=== PATIENT | male | born 1970 | race Caucasian/White ===

== ENCOUNTER → 2018-10-21 09:35 | Outpatient (CLI) | payer BC, SELFPAY ==
[2017-01-10 09:57] VITALS: BMI 30.9
--- NOTE | 2018-10-21 09:46 | RAD_ITS ---
STUDY: X-RAY - LUMBAR SPINE REASON FOR EXAM: Male, 48 years old. Low back pain x3 years TECHNIQUE: 5 view(s) of the lumbar spine were obtained. COMPARISON: None FINDINGS: Normal lumbar lordosis. There is no substantial scoliosis. There is a normal alignment of the vertebrae. There is minimal endplate spondylosis of L4 and L5. Normal disc space heights. The soft tissue structures are unremarkable. RAD/L/S Spine Min 4 Views IMPRESSION: Minimal endplate spondylosis of L4 and L5. The study is otherwise unremarkable. Electronically Signed: Waylon Reyes MD at 22:11 EST , Service support ,
--- OUTSIDE RECORDS SUMMARY | 2018-12-14 13:58 | XMS RPT_ITS ---
:1970 Author Organization [facility] Care Team Providers Name Role Phone Jonathan Lyons Attending Unavailable Eloy, Jonathan Referring Unavailable Eloy, Jonathan Primary Care Unavailable Jonathan Lyons Attending Unavailable Eloy, Jonathan Referring Unavailable Eloy, Jonathan Primary Care Unavailable PROBLEMS PROBLEMS DATE TYPE CONDITION / CODE ATTENDING STATUS SOURCE 10/21/2018 Unknown M54.9 - Jonathan Lyons Active [place] [facility], Community unspecified / Hospital M54.9(ICD-10) Repository PROCEDURES PROCEDURES No Procedure Records FoundRESULTS RESULTS INITAL EVALUATION (1) Observed: 10/29/2018 Status: F Source: [place] - PT 5:02 PM [facility] REPOSITORY [facility] Physical [facility] [address] [place] [address] Fax REHABILITATION SERVICES INITIAL EVALUATION MR#: [id number] Acct: [id number] Name: KYM PARKER Rep #: [id number] : 1970 48 From: Isaiah Welsh PT, Cert. MDT, OCS Referring Dr.: Jonathan Lyons MD Status: REG RCR Insurance: [employer] SELF PAY INSURANCE Patient's Visit Information KYM PARKER is a 48 year old M referred to Physical Therapy by Jonathan Lyons with a diagnosis of BACK PAIN. Date of Evaluation: 10/23/18 Physical Therapist: Isaiah Welsh PT, - Visit Plan Frequency: 2x /Week Duration: 4 Weeks Plan: PATIENT HAS H/O CERVICAL FUSION 6 YEARS AGO. MEÑO EX'S,DLS,POSTURE EX'S ,MODALITIES ,LE FLEXABLITY - Subjective Findings: This 48 y/o male presents to physical therapy for low back pain. This patient has lumbar pain for several years worsen past 6 months. Patient has symmtrical mainly in the center. Patient has symptoms with parathesia/tingling in legs for 10-15mins with walking. Coughing/sneezing can increase symptoms.Bowel/bladder good. Pain can affect sleeping rolling in bed.Patient had no prior treatment. Patient had cervical surgery fusion due to HNP 6 YEARS. Patient symptoms affect QOL and function/job demands. SOCIAL: . VOCATION: [employer] - Pain Bilateral Back Pain Intensity (Out of 10): 2 Pain Intensity Range: 10 - Objective POSTURE: mild foward posture. GAIT: reciprocal pattern normal veronica. PALAPTION: unremarkable. NEURO: reflexes 3/3 hyperreflexia ,C5-6-7,L3-4,L4-5,L5-S1. SYMMTRIES: alighn. MMT: 4/5 grossly BUE,quads/hams/hip /ankle 4/5. LUMBAR ROM: flexion min loss,extension min/mod loss,side glides min loss. FLEXABLITY: hams mod tight - Special Tests L/S Slump test left side: Negative L/S Slump test right side: Negative L/S Left Straight Leg Raise: Negative L/S Right Straight Leg Raise: Negative Lumbar Standing: Flexion - Mechanical Response: No effect Lumbar Standing: Flexion - Symptoms During Testing: Increases Lumbar Standing: Flexion - Symptoms After Testing: No worse Lumbar Standing: Extension - Mechanical Response: No effect Lumbar Standing: Extension - Symptoms During Testing: Increases Lumbar Standing: Extension - Symptoms After Testing: No worse Lumbar Lying: Flexion - Mechanical Response: No effect Lumbar Lying: Flexion - Symptoms During Testing: No effect Lumbar Lying: Flexion - Symptoms After Testing: No effect Lumbar Lying: Extension - Mechanical Response: No effect Lumbar Lying: Extension - Symptoms During Testing: Increases Lumbar Lying: Extension - Symptoms After Testing: Better - Goals Goal 1:: Independant with HEP Goal Time Frame: 4-6 Weeks Goal 2:: Independant with posture for ADL'S Goal Time Frame: 4-6 Weeks Goal 3:: Decrease symptoms in legs with walking by 60% Goal Time Frame: 4-6 Weeks Goal 4:: Patient improve lumbar ROM for function of recovery Goal Time Frame: 4-6 Weeks Goal 5:: Patient to improve LUCY back score by 5 points to umprove QOL Goal Time Frame: 4-6 Weeks - Rehabilitation Potential Physical Therapy Diagnosis: This patient seen for PT for lumbar pain with possible derrangement symptoms worse with walking. Patient does have h/o of cervical fusion caused weakness in legs 6 years ago. Rehabilitation Potential: Good - Anticipated Interventions Patient/Client Instruction: Educate patient on: Condition, Plan of Care For the Purpose of:: To decrease pain, To increase ROM, To improve muscle performance and motor function, To increase tolerance to activity/condition/position, To improve ability of physical actions for home/community/work/leisure, To improve health of tissue, To decrease soft tissue restriction, To increase flexibility/ROM, To improve ability to perform tasks related to life management Therapeutic Exercise to Include: Strength training, Body mechanics, Postural training, Flexibilty training, Dynamic Lumbar Stabilization, Meño Exercises For the Purpose of:: To decrease pain, To increase ROM, To improve muscle performance and motor function, To increase tolerance to activity/condition/position, To decrease level of supervision to perform tasks, To improve health of tissue, To decrease soft tissue restriction, To increase flexibility/ROM, To improve ability to perform tasks related to life management TENS: Yes IF ES: Yes Cryotherapy (ice pack, ice massage): Yes Thermo therapy (hot pack): Yes Ultrasound (thermal/non thermal): Yes For the Purpose of:: To decrease pain, To increase ROM, To improve nutrient delivery to tissue, To increase oxygenation perfusion, To improve health of tissue, To decrease soft tissue restriction, To increase flexibility/ROM Thank you for the opportunity to evaluate your patient. For Medicare and Medicare HMO plans, please review the plan of care and approve it. It will need to be FAXED BACK to us at [phone] for Medicare purposes. For Medicare only, by signing this I certify the plan of care. Please let me know if there are questions or concerns regarding this plan of care. Physician Signature: Date: <Electronically signed by Isaiah Welsh PT, Cert. MDT, OCS> 10/29/18 1702 CC: Jonathan Lyons MD JLA Signed L/S SPINE MIN 4 Observed: 10/21/2018 Status: F Source: [place] VIEWS 9:46 AM [facility] REPOSITORY [facility] Imaging Services [address] [place] [address] L/S Spine Min 4 Views MR#: [id number] Acct: [id number] Name: KYM PARKER Rep #: [id number] : 1970 M 48 From: Waylon Reyes MD PCP: Jonathan Lyons MD Status: REG CLI Study: L/S Spine Min 4 Views Date of Exam: 10/21/18 Exam# [id number] Ordering Dr: Jonathan Lyons MD STUDY: X-RAY - LUMBAR SPINE REASON FOR EXAM: Male, 48 years old. Low back pain x3 years TECHNIQUE: 5 view(s) of the lumbar spine were obtained. COMPARISON: None FINDINGS: Normal lumbar lordosis. There is no substantial scoliosis. There is a normal alignment of the vertebrae. There is minimal endplate spondylosis of L4 and L5. Normal disc space heights. The soft tissue structures are unremarkable. RAD/L/S Spine Min 4 Views IMPRESSION: Minimal endplate spondylosis of L4 and L5. The study is otherwise unremarkable. Electronically Signed: Waylon Reyes MD at 22:11 EST , Service support , CC: Jonathan Lyons MD Hospital Personnel Director: Signed CNOV Observed: 07/01/2018 Status: COMPLETED Source: [place] 12:30 PM [facility] [place] REPOSITORY Office Visit (WSTR) KYM PARKER ([id number]) 1970 M Date Time Provider Department 07/01/18 12:30 PM ARIELLA MAYORGA ([facility]) [facility] During your visit today, we recorded the following information about you: Temperature Pulse Respiration Blood pressure 98 degrees 88/minute 18/minute 140/90 Weight 101.2 kg Ariella Mayorga APRN.CNP 07/01/2018 1:12 PM Signed Subjective HPI HPI Kym Parker is a 48 year old male who presents today for CC of right knee pain. This started 5 days ago after large amount of work/kneeling. Has tried ibuprofen with mild relief. Symptoms are worsened by walking. Risk factors are right knee injury years ago, not worked up/resolved. .Patient presents with: Knee Pain: Right knee No past medical history on file. No past surgical history on file. ALLERGIES Patient has no known allergies. MEDICATIONS No prescriptions on file. No family history on file. Social History Substance Use Topics - Smoking status: Never Smoker - Smokeless tobacco: Current User Types: Chew - Alcohol use Not on file Review of Systems Constitutional: Negative for chills and fever. Musculoskeletal: Positive for joint pain. Skin: Negative for itching and rash. Objective Blood pressure 140/90, pulse 88, temperature 36.7 ?C (98 ?F), temperature source Left Tympanic, resp. rate 18, weight 101.2 kg (223 lb). Physical Exam Constitutional: He is oriented to person, place, and time and well-developed, well-nourished, and in no distress. Non-toxic appearance. He does not have a sickly appearance. No distress. HENT: Head: Normocephalic and atraumatic. Cardiovascular: Pulses: Dorsalis pedis pulses are 2+ on the right side. Posterior tibial pulses are 2+ on the right side. Pulmonary/Chest: Effort normal. No accessory muscle usage. No respiratory distress. Musculoskeletal: Right knee: He exhibits swelling. He exhibits normal range of motion, no effusion, no ecchymosis, no deformity, no laceration, no erythema, normal alignment and no LCL laxity. Legs: Neurological: He is alert and oriented to person, place, and time. Skin: He is not diaphoretic. ASSESSMENT/PLAN: 1. Acute pain of right knee - ICD9: 719.46, ICD10: M25.561 -suspect bursitis -given stretches/exercises -Rest, Ice, Compression, Elevation discussed -discussed use of ibuprofen -follow up with primary care if symptoms persist/worsen in 10-14 days -will establish with pcp and have f/u to recheck knee/blood pressure - PREDNISONE 10 MG TABLET Prescription instructions reviewed with patient as applicable. Patient advised if symptoms do not improve or if symptoms worsen sooner, to contact the office for further evaluation by their primary care physician. Potential red flag symptoms discussed with the patient. Reviewed appropriate action plan to take if red flag symptoms occur. Patient agreeable to treatment plan. Ariella Mayorga APRN.LEEROY Mayorga APRN.CNP 07/01/2018 12:35 PM Signed ASSESSMENT/PLAN: 1. Acute pain of right knee - ICD9: 719.46, ICD10: M25.561 -given stretches/exercises -Rest, Ice, Compression, Elevation discussed -discussed use of ibuprofen -follow up with primary care if symptoms persist/worsen in 10-14 days - PREDNISONE 10 MG TABLET Referring Provider: SELF [200] Allergies As of Date: 07/01/2018 (No Known Allergies) Date Reviewed: 07/01/2018 Reviewed by: Ariella Mayorga - Fully Assessed Reason for Visit: Knee Pain [132] Cmt: Right knee Primary Visit Diagnosis:Acute pain of right knee [M25.561] Order(s):predniSONE (DELTASONE) 10 mg tabletTake 4 tabs daily for 3 days, then 2 tabs daily for 3 days, then 1 tab daily for 3 days with food.Disp: 21 tabletRfl: 0 Prescriptions as of 07/01/2018 Sig: PREDNISONE 10 MG TABLET Take 4 tabs daily for 3 days,* Problem List As Of Date: 07/01/2018 (None) Other instructions from your clinician: ASSESSMENT/PLAN: 1. Acute pain of right knee - ICD9: 719.46, ICD10: M25.561 -given stretches/exercises -Rest, Ice, Compression, Elevation discussed -discussed use of ibuprofen -follow up with primary care if symptoms persist/worsen in 10-14 days - PREDNISONE 10 MG TABLET Prescriptions ordered this encounter Disp Refills Start End PREDNISONE 10 MG TABLET 21 t* 0 07/01/2018 07/10/2018 Sig: Take 4 tabs daily for 3 days, then 2 tabs daily for 3 days, then 1 tab daily for 3 days with food. Encounter Status:Closed by ARIELLA MAYORGA CNP on 07/01/18 PROGRESS Observed: 07/01/2018 Status: COMPLETED Source: [place] 12:23 PM [facility] REPOSITORY O ID: [id number] Author: Ariella Gutiérrez) Service: (none) Author Type: Nurse Practitioner Type: Progress Notes Filed: 07/01/2018 1:12 PM Note Text: Subjective HPI HPI Kym Parker is a 48 year old male who presents today for CC of right knee pain. This started 5 days ago after large amount of work/kneeling. Has tried ibuprofen with mild relief. Symptoms are worsened by walking. Risk factors are right knee injury years ago, not worked up/resolved. .Patient presents with: Knee Pain: Right knee No past medical history on file. No past surgical history on file. ALLERGIES Patient has no known allergies. MEDICATIONS No prescriptions on file. No family history on file. Social History Substance Use Topics - Smoking status: Never Smoker - Smokeless tobacco: Current User Types: Chew - Alcohol use Not on file Review of Systems Constitutional: Negative for chills and fever. Musculoskeletal: Positive for joint pain. Skin: Negative for itching and rash. Objective Blood pressure 140/90, pulse 88, temperature 36.7 ?C (98 ?F), temperature source Left Tympanic, resp. rate 18, weight 101.2 kg (223 lb). Physical Exam Constitutional: He is oriented to person, place, and time and well-developed, well-nourished, and in no distress. Non-toxic appearance. He does not have a sickly appearance. No distress. HENT: Head: Normocephalic and atraumatic. Cardiovascular: Pulses: Dorsalis pedis pulses are 2+ on the right side. Posterior tibial pulses are 2+ on the right side. Pulmonary/Chest: Effort normal. No accessory muscle usage. No respiratory distress. Musculoskeletal: Right knee: He exhibits swelling. He exhibits normal range of motion, no effusion, no ecchymosis, no deformity, no laceration, no erythema, normal alignment and no LCL laxity. Legs: Neurological: He is alert and oriented to person, place, and time. Skin: He is not diaphoretic. ASSESSMENT/PLAN: 1. Acute pain of right knee - ICD9: 719.46, ICD10: M25.561 -suspect bursitis -given stretches/exercises -Rest, Ice, Compression, Elevation discussed -discussed use of ibuprofen -follow up with primary care if symptoms persist/worsen in 10-14 days -will establish with pcp and have f/u to recheck knee/blood pressure - PREDNISONE 10 MG TABLET Prescription instructions reviewed with patient as applicable. Patient advised if symptoms do not improve or if symptoms worsen sooner, to contact the office for further evaluation by their primary care physician. Potential red flag symptoms discussed with the patient. Reviewed appropriate action plan to take if red flag symptoms occur. Patient agreeable to treatment plan. Ariella Mayorga APRN.NON LICENSED NUCLEAR PLANT OPERATOR ALLERGIES ALLERGIES DATE TYPE / CODE NAME / CODE REACTION SEVERITY SOURCE 01/10/2017 Drug No Known Unknown [facility] Allergy/416 Allergies/K54884 [facility] 412034(SNOM 0388(RXNORM) Repository ED CT) Drug NO KNOWN [facility] Class/43088 ALLERGIES [facility] 1003(SNOMED Repository CT) ENCOUNTERS ENCOUNTERS ADMIT/DISCHARGE ACCOUNT ADMITTING ENCOUNTER LOCATION SOURCE NUMBER CLASS 10/31/2018 [id number] [facility] ing:PT Repository 10/21/2018 [id number] [facility] ing:MTRAD Repository 07/01/2018/07/03/20 [id number] [address]ulatory [address] Repository PAYERS PAYERS ENCOUNTER GUARANTOR PAYER SUBSCRIBER SOURCE 10/31/2018 KYM [id number] Insurance:ANTHEMPolic STARLINGDOB: [facility] dev Kumar Number: [id number] [address]Ied: [id number] Repository Date:0920-27-03[address] () [id number], [place] [address]HP: 10/31/2018 Secondary NOT GIVENUNK [place] Insurance:SELF PAY [facility] Number: Effective Repository Date:2018-10-23 10/21/2018 KYM L Primary KYM [facility] [place] [id number] Insurance:ANTHEMPolic STARLINGDOB: [facility] DUNG KOCHWooradha, y Number: [id number] [address]Ttr: [id number] Repository Date:5066-06-22[address] () [place], [place] [address]CY: 10/21/2018 Secondary NOT GIVENUNK [place] Insurance:SELF PAY [facility] Number: Effective Repository Date:2018-10-21
== END ==
PROVIDERS: Family Provider Family Medicine; PCP Family Medicine; Referring Provider Family Medicine; Visit Provider Family Medicine
DX: M54.9 Dorsalgia, unspecified (principal)
CPT/HCPCS: 72110

== ENCOUNTER 2018-11-21 10:30 | Outpatient (RCR) | payer BC, SELFPAY ==
--- NOTE | 2018-10-23 14:51 | HP.PTEVAL_ITS ---
Patient's Visit Information KYM QUINTANA is a 48 year old M referred to Physical Therapy by Jonathan Lyons with a diagnosis of BACK PAIN. Date of Evaluation: 10/23/18 Physical Therapist: Isaiah Welsh PT, - Visit Plan Frequency: 2x /Week Duration: 4 Weeks Plan: PATIENT HAS H/O CERVICAL FUSION 6 YEARS AGO. MEÑO EX'S,DLS,POSTURE EX'S ,MODALITIES ,LE FLEXABLITY - Subjective Findings: This 48 y/o male presents to physical therapy for low back pain. This patient has lumbar pain for several years worsen past 6 months. Patient has symmtrical mainly in the center. Patient has symptoms with parathesia/tingling in legs for 10-15mins with walking. Coughing/sneezing can increase symptoms.Bowel/bladder good. Pain can affect sleeping rolling in bed.Patient had no prior treatment. Patient had cervical surgery fusion due to HNP 6 YEARS. Patient symptoms affect QOL and function/job demands. SOCIAL: . VOCATION: [employer] - Pain Bilateral Back Pain Intensity (Out of 10): 2 Pain Intensity Range: 10 - Objective POSTURE: mild foward posture. GAIT: reciprocal pattern normal veronica. PALAPTION: unremarkable. NEURO: reflexes 3/3 hyperreflexia ,C5-6-7,L3-4,L4-5,L5-S1. SYMMTRIES: alighn. MMT: 4/5 grossly BUE,quads/hams/hip /ankle 4/5. LUMBAR ROM: flexion min loss,extension min/mod loss,side glides min loss. FLEXABLITY: hams mod tight - Special Tests L/S Slump test left side: Negative L/S Slump test right side: Negative L/S Left Straight Leg Raise: Negative L/S Right Straight Leg Raise: Negative Lumbar Standing: Flexion - Mechanical Response: No effect Lumbar Standing: Flexion - Symptoms During Testing: Increases Lumbar Standing: Flexion - Symptoms After Testing: No worse Lumbar Standing: Extension - Mechanical Response: No effect Lumbar Standing: Extension - Symptoms During Testing: Increases Lumbar Standing: Extension - Symptoms After Testing: No worse Lumbar Lying: Flexion - Mechanical Response: No effect Lumbar Lying: Flexion - Symptoms During Testing: No effect Lumbar Lying: Flexion - Symptoms After Testing: No effect Lumbar Lying: Extension - Mechanical Response: No effect Lumbar Lying: Extension - Symptoms During Testing: Increases Lumbar Lying: Extension - Symptoms After Testing: Better - Goals Goal 1:: Independant with HEP Goal Time Frame: 4-6 Weeks Goal 2:: Independant with posture for ADL'S Goal Time Frame: 4-6 Weeks Goal 3:: Decrease symptoms in legs with walking by 60% Goal Time Frame: 4-6 Weeks Goal 4:: Patient improve lumbar ROM for function of recovery Goal Time Frame: 4-6 Weeks Goal 5:: Patient to improve LUCY back score by 5 points to umprove QOL Goal Time Frame: 4-6 Weeks - Rehabilitation Potential Physical Therapy Diagnosis: This patient seen for PT for lumbar pain with possible derrangement symptoms worse with walking. Patient does have h/o of cervical fusion caused weakness in legs 6 years ago. Rehabilitation Potential: Good - Anticipated Interventions Patient/Client Instruction: Educate patient on: Condition, Plan of Care For the Purpose of:: To decrease pain, To increase ROM, To improve muscle performance and motor function, To increase tolerance to activity/condition/position, To improve ability of physical actions for home/community/work/leisure, To improve health of tissue, To decrease soft tissue restriction, To increase flexibility/ROM, To improve ability to perform tasks related to life management Therapeutic Exercise to Include: Strength training, Body mechanics, Postural training, Flexibilty training, Dynamic Lumbar Stabilization, Meño Exercises For the Purpose of:: To decrease pain, To increase ROM, To improve muscle performance and motor function, To increase tolerance to activity/condition/position, To decrease level of supervision to perform tasks, To improve health of tissue, To decrease soft tissue restriction, To increase flexibility/ROM, To improve ability to perform tasks related to life management TENS: Yes IF ES: Yes Cryotherapy (ice pack, ice massage): Yes Thermo therapy (hot pack): Yes Ultrasound (thermal/non thermal): Yes For the Purpose of:: To decrease pain, To increase ROM, To improve nutrient delivery to tissue, To increase oxygenation perfusion, To improve health of tissue, To decrease soft tissue restriction, To increase flexibility/ROM Thank you for the opportunity to evaluate your patient. For Medicare and Medicare HMO plans, please review the plan of care and approve it. It will need to be FAXED BACK to us at [phone] for Medicare purposes. For Medicare only, by signing this I certify the plan of care. Please let me know if there are questions or concerns regarding this plan of care. Physician Signature:__ Date:
--- NOTE | 2018-11-21 11:04 | HP.PTDCSUM ---
HP - PT D/C Summary It has been my pleasure to treat KYM QUINTANA under orders from Jonathan Lyons MD, for the diagnosis of BACK PAIN for a total of 8 visit(s). Discharge Date: 11/21/18 Please see the following information for a summary of their discharge status. - Subjective Subjective: Doing okay but symptoms not getting better , Symptoms same with parathesia in legs with standing and walking. 2minutes - Pain Bilateral Back Pain Intensity (Out of 10): 3 - Overall Improvement % Improvement: 10 - Objective Objective/Function: POSTURE: WFL. GAIT: NORMAL JUSTO. NEURO: REFLEXES HYPERRLEXIA L3-4,L4-4,L5-S1. MMT: 4/5. LUMBAR ROM: FLEXION MIN,SIDE GLIDES MIN ,EXTENSION MIN LOSS BACK PAIN. -SLR - Goals Goal 1:: Independant with HEP Goal Progress: Goal Met Goal 2:: Independant with posture for ADL'S Goal Progress: Goal Met Goal 3:: Decrease symptoms in legs with walking by 60% Goal Progress: Not Progressing Goal 4:: Patient improve lumbar ROM for function of recovery Goal Progress: Progressing Goal 5:: Patient to improve LUCY back score by 5 points to umprove QOL Goal Progress: Not Progressing - Plan Plan: RTD - D/C Information Discharge Comments: RTD ,RECOMMEND FURTHER DIAGNOSTICS MRI If there are questions or concerns regarding this patient's physical therapy, please feel free to call me at [phone]. Thank you for the referral of this patient. Sincerely, Isaiah Welsh, PT, Cert MDT, OCS
== END 2018-11-21 19:00 | disposition home or self-care (01) ==
LOC: PT 10:30
PROVIDERS: Family Provider Family Medicine; PCP Family Medicine; Referring Provider Family Medicine; Visit Provider Family Medicine
DX: M54.9 Dorsalgia, unspecified (principal)
CPT/HCPCS: 97014; 97110; 97161; 97530; G0283

== ENCOUNTER → 2018-12-05 13:02 | Outpatient (CLI) | payer BC, SELFPAY ==
--- NOTE | 2018-12-05 13:45 | MRI_ITS ---
STUDY: MRI LUMBAR SPINE WITHOUT CONTRAST REASON FOR EXAM: Male, 48 years old. Low back pain and bilateral leg numbness TECHNIQUE: Standardized fat and water weighted pulse sequences were obtained in the sagittal and axial planes. COMPARISON: None FINDINGS: T12-L1: Normal endplates. Normal disc height, hydration and morphology. Normal bilateral facet joints. Normal central canal and bilateral lateral recesses. Normal bilateral intervertebral neural foramina. Normal lumbar lordosis. There is no substantial scoliosis. Normal conus medullaris that terminates at the L1 level. L1-2: Normal endplates. Normal disc height, hydration and morphology. Normal bilateral facet joints. Normal central canal and bilateral lateral recesses. Normal bilateral intervertebral neural foramina. L2-3: Normal disc. Bilateral facet hypertrophy. L3-4: Normal disc. Bilateral facet hypertrophy. L4-5: Bulging annulus and bilateral facet and ligamentum flavum hypertrophy with moderate central canal stenosis and moderate to severe right and mild left foraminal stenoses. L5-S1: Normal disc. Right facet hypertrophy. Normal visualized sacral ala. Normal visualized paraspinous soft tissue structures. MRI/Spine Lumbar (Routine) IMPRESSION: Multilevel degenerative disease as described. Moderate to severe right foraminal stenosis at L4-5. Electronically Signed: Jessee Dover MD at 15:16 EST Tel , Service support ,
--- OUTSIDE RECORDS SUMMARY | 2019-02-09 05:58 | XMS RPT_ITS ---
:1970 Author Organization OHIP Care Team Providers Name Role Phone Jonathan Lyons Attending Unavailable Eloy, Jonathan Referring Unavailable Lyons, Jonathan Primary Care Unavailable Eloy, Jonathan Attending Unavailable Lyons, Jonathan Referring Unavailable Lyons, Jonathan Primary Care Unavailable Lyons, Jonathan Attending Unavailable Lyons, Jonathan Referring Unavailable Eloy, Jonathan Primary Care Unavailable PROBLEMS PROBLEMS DATE TYPE CONDITION / CODE ATTENDING STATUS SOURCE 10/21/2018 Unknown M54.9 - Jonathan Lyons [facility] M54.9(ICD-10) Repository PROCEDURES PROCEDURES No Procedure Records FoundRESULTS RESULTS SPINE LUMBAR Observed: 12/05/2018 Status: F Source: [place] (ROUTINE) 1:18 PM [facility] H[facility]PITAL REPOSITORY [facility] Imaging Services [address] [place] [address] Spine Lumbar (Routine) MR#: [id number] Acct: [id number] Name: KYM PARKER Rep #: [id number] : 1970 M 48 From: Kym Dover MD PCP: Jonathan Lyons MD Status: REG CLI Study: Spine Lumbar (Routine) Date of Exam: 12/05/18 Exam# [id number] Ordering Dr: Jonathan Lyons MD ADDENDUM by Bridger Velasquez on 12/07/18 at 05 ADDENDUM STUDY: MRI LUMBAR SPINE WITHOUT CONTRAST REASON FOR EXAM: Male, 48 years old. Low back pain and bilateral leg numbness TECHNIQUE: Standardized fat and water weighted pulse sequences were obtained in the sagittal and axial planes. COMPARISON: None FINDINGS: T12-L1: Normal endplates. Normal disc height, hydration and morphology. Normal bilateral facet joints. Normal central canal and bilateral lateral recesses. Normal bilateral intervertebral neural foramina. Normal lumbar lordosis. There is no substantial scoliosis. Normal conus medullaris that terminates at the L1 level. L1-2: Normal endplates. Normal disc height, hydration and morphology. Normal bilateral facet joints. Normal central canal and bilateral lateral recesses. Normal bilateral intervertebral neural foramina. L2-3: Normal disc. Bilateral facet hypertrophy. L3-4: Normal disc. Bilateral facet hypertrophy. L4-5: Bulging annulus and bilateral facet and ligamentum flavum hypertrophy with moderate central canal stenosis and moderate to severe right and mild left foraminal stenoses. L5-S1: Normal disc. Right facet hypertrophy. Normal visualized sacral ala. Normal visualized paraspinous soft tissue structures. 12/07/18518 Date cc: Jonathan Lyons MD * Signed ADDENDUM by Bridger Velasquez on 12/07/18 at 0519 MRI/Spine Lumbar (Routine) IMPRESSION: Multilevel degenerative disease as described. Moderate to severe right foraminal stenosis at L4-5. Electronically Signed: Bridger Velasquez MD at 5:19 EST , Service support , 12/07/18 0526 Date cc: Jonathan Lyons MD * Signed STUDY: MRI LUMBAR SPINE WITHOUT CONTRAST REASON FOR EXAM: Male, 48 years old. Low back pain and bilateral leg numbness TECHNIQUE: Standardized fat and water weighted pulse sequences were obtained in the sagittal and axial planes. COMPARISON: None FINDINGS: T12-L1: Normal endplates. Normal disc height, hydration and morphology. Normal bilateral facet joints. Normal central canal and bilateral lateral recesses. Normal bilateral intervertebral neural foramina. Normal lumbar lordosis. There is no substantial scoliosis. Normal conus medullaris that terminates at the L1 level. L1-2: Normal endplates. Normal disc height, hydration and morphology. Normal bilateral facet joints. Normal central canal and bilateral lateral recesses. Normal bilateral intervertebral neural foramina. L2-3: Normal disc. Bilateral facet hypertrophy. L3-4: Normal disc. Bilateral facet hypertrophy. L4-5: Bulging annulus and bilateral facet and ligamentum flavum hypertrophy with moderate central canal stenosis and moderate to severe right and mild left foraminal stenoses. L5-S1: Normal disc. Right facet hypertrophy. Normal visualized sacral ala. Normal visualized paraspinous soft tissue structures. MRI/Spine Lumbar (Routine) IMPRESSION: Multilevel degenerative disease as described. Moderate to severe right foraminal stenosis at L4-5. Electronically Signed: Kym Dover MD at 15:16 EST Tel , Service support , CC: Jonathan Lyons MD Real Estate Recruiter: Signed PT D/C SUMMARY (1) Observed: 11/21/2018 Status: F Source: M[place] 6:04 PM [facility] REPOSITORY [facility] Physical Therapy [facility] [address] [place] [address] / REHABILITATION SERVICES DISCHARGE SUMMARY MR#: [id number] Acct: [id number] Name: KYM PARKER Rep #: [id number] : 1970 48 From: Isaiah Welsh PT, Cert. MDT, OCS Referring Dr.: Jonathan Lyons MD Status: REG RCR Insurance: [employer] SELF PAY INSURANCE HP - PT D/C Summary It has been my pleasure to treat KYM PARKER under orders from Jonathan Lyons MD, for the diagnosis of BACK PAIN for a total of 8 visit(s). Discharge Date: 11/21/18 Please see the following information for a summary of their discharge status. - Subjective Subjective: Doing okay but symptoms not getting better , Symptoms same with parathesia in legs with standing and walking. 2minutes - Pain Bilateral Back Pain Intensity (Out of 10): 3 - Overall Improvement % Improvement: 10 - Objective Objective/Function: POSTURE: WFL. GAIT: NORMAL JUSTO. NEURO: REFLEXES HYPERRLEXIA L3-4,L4-4,L5-S1. MMT: 4/5. LUMBAR ROM: FLEXION MIN,SIDE GLIDES MIN ,EXTENSION MIN LOSS BACK PAIN. -SLR - Goals Goal 1:: Independant with HEP Goal Progress: Goal Met Goal 2:: Independant with posture for ADL'S Goal Progress: Goal Met Goal 3:: Decrease symptoms in legs with walking by 60% Goal Progress: Not Progressing Goal 4:: Patient improve lumbar ROM for function of recovery Goal Progress: Progressing Goal 5:: Patient to improve LUCY back score by 5 points to umprove QOL Goal Progress: Not Progressing - Plan Plan: RTD - D/C Information Discharge Comments: RTD ,RECOMMEND FURTHER DIAGNOSTICS MRI If there are questions or concerns regarding this patient's physical therapy, please feel free to call me at [phone]. Thank you for the referral of this patient. Sincerely, Isaiah Welsh PT, Cert JAQUELINE, OCS <Electronically signed by Isaiah Welhs PT Cert. JAQUELINE, OCS> 11/21/18 1804 CC: Jonathan Lyons MD CHERI Signed INITAL EVALUATION (1) Observed: 10/29/2018 Status: F Source: AN[place] - PT 5:02 PM [facility] REPOSITORY [facility] Physical Therapy [facility] [address] [place], [place] [address] Fax REHABILITATION SERVICES INITIAL EVALUATION MR#: [id number] Acct: [id number] Name: KYM PARKER Rep #: [id number] : 1970 48 From: Scott Osborne PT. JAQUELINE, OCS Referring Dr.: Jonathan Lyons MD Status: REG RCR Insurance: [employer] SELF PAY INSURANCE Patient's Visit Information KYM [...] mild foward posture. GAIT: reciprocal pattern normal justo. PALAPTION: unremarkable. NEURO: reflexes 3/3 hyperreflexia ,C5-6-7,L3-4,L4-5,L5-S1. [...] to be FAXED BACK to us at [phone] for Medicare purposes. For Medicare only, by signing this I certify the plan of care. Please let me know if there are questions or concerns regarding this plan of care. Physician Signature: Date: <Electronically signed by Isaiah Welsh PT, Cert. T, [facility]> 10/29/18 1702 CC: Jonathan Lyons MD JLA Signed L/S SPINE MIN 4 Observed: 10/21/2018 Status: F Source: [place] VIEWS 9:46 AM [facility] REPOSITORY [facility] Imaging Services [address] [place] [address] L/S Spine Min 4 Views MR#: [id number] Acct: [id number] Name: KYM PARKER Rep #: [id number] : 1970 M 48 From: Waylon Reyes MD PCP: Jonathan Lyons MD Status: REG CLI Study: L/S Spine Min 4 Views Date of Exam: 10/21/18 Exam# [id number] Ordering Dr: Jonathan Lyons MD STUDY: X-RAY [...] Service support , CC: Jonathan Lyons MD Real Estate Recruiter: Signed CNOV Observed: 07/01/2018 Status: COMPLETED Source: [place] 12:30 PM [facility] REPOSITORY Office Visit (WSTR) MARIANOKYM Centeno ([id number]) 1970 M Date Time Provider Department 07/01/18 12:30 PM ARIELLA MAYORGA ([facility] During your visit today, we recorded the [...] to treatment plan. Ariella Mayorga APRN.LEEROY Mayorga APRNALEX 07/01/2018 12:35 PM Signed ASSESSMENT/PLAN: 1. Acute [...] 07/01/18 PROGRESS Observed: 07/01/2018 Status: COMPLETED Source: [place] 12:[address] [facility] [place] REPOSITORY O ID: [id number] Author: Ariella Mayorga Service: (none) Author Type: Nurse Practitioner Type: [...] Patient agreeable to treatment plan. Ariella Mayorga APRN.JAVA DEVELOPMENT MANAGER ALLERGIES ALLERGIES DATE TYPE / CODE NAME / CODE REACTION SEVERITY SOURCE 01/10/2017 Drug No Known Unknown [facility] Allergy/416 Allergies/S94812 Hospital 277233(SNOM 0388(RXNORM) Repository ED CT) Drug NO KNOWN [facility] Class/88721 ALLERGIES [place] 1003(SNOMED Repository CT) ENCOUNTERS ENCOUNTERS ADMIT/DISCHARGE ACCOUNT ADMITTING ENCOUNTER LOCATION SOURCE NUMBER CLASS 12/05/2018 [id number] [facility] ing:MRI Repository 11/21/2018/11/21/19 [id number] Ambulatory [address] ing:PT Repository 10/21/2018 [id number] [facility] ing:MTRAD Repository 07/01/2018/07/03/[id number] Repository PAYERS PAYERS ENCOUNTER GUARANTOR PAYER SUBSCRIBER SOURCE 12/05/2018 KYM Centeno Primary KYM Landis [id number] Insurance:ANTHEMPolic STARLINGDOB: [facility], y [facility]: [id number] [address]Pwo: [id number] Repository Date:2070[address]98[address] ) [address], [place] [address]MA: 12/05/2018 Secondary NOT GIVENUNK [place] Insurance:SELF PAY [facility] Number: Effective Repository Date:2018-12-03 11/21/2018 KYM Centeno Primary KYM Centeno [place] [id number] Insurance:ANTHEMPolic STARLINGDOB: [facility], y Number: [id number] [address]Kzt: [id number] Repository Date:[address] ) [address], [place] [address]DQ: 11/21/2018 Secondary NOT GIVENUNK [place] Insurance:SELF PAY [facility] Number: Effective Repository Date:2018-10-23 10/21/2018 KYM L Primary KYM Centeno [place] [id number] Insurance:ANTHEMPolic STARLINGDOB[facility] Number: [id number] [facility] [address]Exu: [id number] Repository Date:2716-02-39[address], [place] [address]AJ: 10/21/2018 Secondary NOT GIVENUNK [place] Insurance:SELF PAY [facility] Number: Effective Repository Date:2018-10-21
== END ==
PROVIDERS: Family Provider Family Medicine; PCP Family Medicine; Referring Provider Family Medicine; Visit Provider Family Medicine
DX: M54.9 Dorsalgia, unspecified (principal)
CPT/HCPCS: 72148

== ENCOUNTER 2020-10-08 07:30 | Outpatient (RCR) | payer BC, SELFPAY ==
--- NOTE | 2020-09-21 12:05 | HP.PTEVAL ---
Patient's Visit Information KYM QUINTANA is a 50 year old M referred to Physical Therapy by Dr. Jonathan Lyons MD with a diagnosis of BACK PAIN. Date of Evaluation: 09/21/20 Physical Therapist: Ana Campbell, PT, Cert MDT - Visit Plan Frequency: 2-3x /Week Duration: 4-6 Weeks Plan: US, E-STIM WITH MH OR CP. POSTURE CORRECTION/STRENGTHENING, INSTRUCTION IN APPROPRIATE BODY MECHANICS AND ACTIVITY MODIFICATIONS. DLS STARTING WITH A NEUTRAL SPINE PROGRESSING ROM TOLERATED. MAT LE ROM, STRETCHING AND STRENGTHENING. HEP INSTRUCTION. - Subjective Work/Leisure: CONSTRUCTION WORKING - BUILDS BRIDGES. CURRENTLY LAID OFF FOR THE WINTER. Disability: NO. Present symptoms: LOW BACK PAIN. MAT LE NUMBNESS ALL THE WAY DOWN LEGS INTO FEET AND TOES. BACK PAIN AND LE NUMBNESS GOES AWAY IN LYING. LE TINGLING TOO. Present since: LE NUMBNESS STARTED ABOUT 18 MONTHS AGO (ABOUT 6 MONTHS AFTER SURGERY STARTED GRADUALLY). Pain Scale: WORST 3/10, LEAST 0/10. Currently: 2/10. Commenced as a result of: NO APPARENT REASON. Symptoms at onset: LOW BACK. Worse: STANDING AND WALKING. THE HARDER THE SURFACE THE WORSE IT IS. Better: MALOXACAM. LYING DOWN (NO PAIN AND NO NUMBNESS IN LYING). SITTING ABOLISHES LE NUMBNESS BUT NOT BACK PAIN. Disturbed sleep: YES - IF ROLL OVER. Previous history/Previous treatment: 2018 LUMBAR DISCECTOMY (NO FUSION). PT PRIOR TO BACK SURGERY. NO CHIROPRACTOR. NO PAIN MGMT OR KARRI'S. PATIENT REPORTS HE DID REALLY WELL AFTER HIS LOW BACK SURGERY FOR ABOUT 6 MONTHS THEN THE NUMBNESS STARTED TO SLOWLY RETURN IN HIS LEGS. PATIENT REPORTS THAT PHYSICAL THERAPY THE LAST TIME REALLY HURT HIM AND REALLY TRIED TO GET OUT OF COMING TO PT THIS TIME BUT HE IS AFRAID AN MRI WON'T BE APPROVED WITHOUT TRYING IT. Treatment this episode: MALOXACAM. Coughing/sneezing/straining: POSITIVE. Gait: CAN NOT WALK MORE THAN A QUARTER OF A MILE AND LE NUMBNESS GETS PROGRESSIVELY WORSE WITH DISTANCE. GOES AWAY IN SITTING. Difficulty initiating urinatin: NO. Accidents: NO. Unexplained weight loss: NO. Imaging: NO IMAGING YET THIS EPISODE - NONE RECENT. PMH: UNREMARKABLE. Recent major surgery: ACDF ABOUT 10 YEARS AGO - SEVERE SPINAL CORD COMPRESSION PRIOR TO SX WITH SOME RESIDUAL LE SHAKING PER PATIENT REPORT. OTHER: PATIENT REPORTS LAST MRI BEFORE SURGERY TWO YEARS AGO SHOWED A BAD DISC AND SEVERE STENOSIS. PATIENT REPORTS HE JUST SAW DR. LYONS YESTERDAY AND HE THINKS HE REQUESTED AN MRI. - Objective Sitting/Standing Posture: POOR. Lordosis: REDUCED. Lateral shift: NO. Relevant shift: N/A. Active Correction of posture: NE. Other Observations: INDEP GAIT AND TRANSFERS. DIFFICULTY RISING FROM SITTING AND INITIATING GAIT AFTER SITTING. INCREASED TRUNK FLEXION, DECREASED CADANCE AND DECREASED MAT STRIDE LENGTH. Motor deficit: MAT LE'S GROSSLY 4-5/5 WITH MMT'ING. Sensory deficit: MAT LE LIGHT TOUCH SENSATION INTACT AND SYMMETRICAL IN SITTING . ROM deficit: TIGHTNESS IN MAT LE HS'S. Reflexes: MAT LE'S ARE HYPERREFLEXIC. Dural Signs: POSSIBLE POSSITIVE MAT LE'S. Lumbar mvmt loss: flex - MOD. ext - MOD. R SG - MIN. L SG - MIN. PATIENT REPORTS A LITTLE BIT OF INCREASED LOW BACK PAIN WITH LUMBAR ROM TESTING BUT NOTHING SEVERE. AFTER TESTING LEGS ARE VISIBLY SHAKY AND PATIENT REPORTS THIS IS FROM HIS NECK. Core strength: POOR. Palpation: NO ACUTE LUMBAR TENDERNESS. TREATMENT: NEUROMUSCULAR REEDUCATION - RETRAINING OF MVMT AND POSTURE FOR SITTING, LYING AND STANDING ACTIVITIES. - Goals Goal 1:: DECREASE C/O BACK PAIN AND LE SX'S Goal Time Frame: 4-6 Weeks Goal 2:: IMPROVE LIFTING, WALKING, STANDING, SOCIAL LIFE, TRAVEL AND WORK FUNCTION Goal Time Frame: 4-6 Weeks Goal 3:: INSTRUCT IN PROPHYLAXIS Goal Time Frame: 4-6 Weeks - Anticipated Interventions Patient/Client Instruction: Educate patient on: Condition, Plan of Care, Risk Factors, Benefits of Fitness Program For the Purpose of:: To improve self management Therapeutic Exercise to Include: Strength training, Body mechanics, Postural training, Neuromotor development, In an aquatic setting, Dynamic Lumbar Stabilization Comment: CONSIDER AQUATIC THERAPY For the Purpose of:: To decrease pain, To improve muscle performance and motor function, To increase tolerance to activity/condition/position, To improve ability of physical actions for home/community/work/leisure, To improve gait and locomotor functions TENS: Yes IF ES: Yes Cryotherapy (ice pack, ice massage): Yes Thermo therapy (hot pack): Yes Ultrasound (thermal/non thermal): Yes For the Purpose of:: To decrease pain, To decrease swelling/inflammation, To improve nutrient delivery to tissue Thank you for the opportunity to evaluate your patient. For Medicare and Medicare HMO plans, please review the plan of care and approve it. It will need to be FAXED BACK to us at [phone] for Medicare purposes. For Medicare only, by signing this I certify the plan of care. Please let me know if there are questions or concerns regarding this plan of care. Physician Signature: Date:
--- NOTE | 2020-10-08 09:20 | HP.PTDCSUM ---
It has been my pleasure to treat KYM QUINTANA referred by Dr. Jonathan Lyons MD, with the diagnosis of BACK PAIN for a total of 7 visit(s). Discharge Date: Please see the following information for a summary of their discharge status. Subjective: PATIENT STATING HE WOULD LIKE TO HAVE THE US AND STIM AGAIN TODAY BECAUSE THEY HELP HIM FEEL BETTER FOR AWHILE. HOME EX'S ARE ALL GOING OK. NO WORSE BUT NOT MUCH IF ANY BETTER OVER-ALL. GOING OUT OF TOWN FOR A WEEK AND THEN GOING TO HAVE MRI SO WANTS TO MAKE TODAY HIS LAST LUIS FELIPE'T. LOW BACK Pain Intensity (Out of 10): 2 % Improvement: 0 Objective/Function: PATIENT CONTINUES TO TOLERATE INTERVENTIONS WELL BUT PAIN IS EASILY PROVOKED WITH MVMTS SUCH LIFTING BOTH LEGS AT THE SAME TIME WHILE SUPINE. IT IS GOOD THAT PATIENT HAS BEEN ABLE TO TOLERATE INTRO TO DLS AND LE STRENGTHEING EX'S BUT FUNCTIONALLY HE IS NOT IMPROVING. WILL D/C PATIENT AT HIS REQUEST. Goal 1:: DECREASE C/O BACK PAIN AND LE SX'S Goal Progress: Not Progressing Goal 2:: IMPROVE LIFTING, WALKING, STANDING, SOCIAL LIFE, TRAVEL AND WORK FUNCTION Goal Progress: Not Progressing Goal 3:: INSTRUCT IN PROPHYLAXIS Goal Progress: Not Progressing Plan: D/C If there are questions or concerns regarding this patient's physical therapy, please feel free to call me at [phone]. Thank you for the referral of this patient. Sincerely, Ana Campbell PT, Cert MDT
== END 2020-10-08 13:18 | disposition home or self-care (01) ==
LOC: PT 07:30
PROVIDERS: PCP Family Medicine; Referring Provider Family Medicine; Visit Provider Family Medicine
DX: M54.9 Dorsalgia, unspecified (principal)
CPT/HCPCS: 97014; 97035; 97110; 97112; 97162; 97530; G0283

== ENCOUNTER → 2020-10-20 10:54 | Outpatient (CLI) | payer BC, SELFPAY ==
[2017-01-10 09:57] VITALS: BMI 30.9
--- NOTE | 2020-10-20 11:27 | MRI_ITS ---
STUDY: MRI LUMBAR SPINE WITHOUT CONTRAST REASON FOR EXAM: Male, 50 years old. back pain and bilat leg/feet numbness TECHNIQUE: Standardized fat and water weighted pulse sequences were obtained in the sagittal and axial planes. COMPARISON: 12/05/2018. FINDINGS: T12-L1: Normal endplates. Normal disc height, hydration and morphology. Normal bilateral facet joints. Normal central canal and bilateral lateral recesses. Normal bilateral intervertebral neural foramina. Normal lumbar lordosis. There is no substantial scoliosis. Normal conus medullaris that terminates at the T12-L1. L1-2: Normal endplates. Disc dehydration and mild disc space narrowing. Normal bilateral facet joints. Normal central canal and bilateral lateral recesses. Normal bilateral intervertebral neural foramina. L2-3: Normal endplates. Normal disc height, hydration and morphology. Mild facet hypertrophy. Normal central canal and bilateral lateral recesses. Normal bilateral intervertebral neural foramina. L3-4: Normal endplates. Normal disc height, hydration and morphology. Mild facet hypertrophy. Normal central canal and bilateral lateral recesses. Normal bilateral intervertebral neural foramina. L4-5: Normal endplates. Disc dehydration and mild disc space narrowing. Small, central, noncompressive disc protrusion. Clumped appearance of the anterior nerve roots. Mild facet hypertrophy. Facet arthrosis with increased fluid in the joints. Normal central canal and bilateral lateral recesses. Normal bilateral intervertebral neural foramina. Prior laminectomy. L5-S1: Normal endplates. Normal disc height, hydration and morphology. Normal bilateral facet joints. Normal central canal and bilateral lateral recesses. Normal bilateral intervertebral neural foramina. Normal visualized sacral ala. Normal visualized paraspinous soft tissue structures. MRI/Spine Lumbar (Routine) IMPRESSION: 1. Noncompressive L4-L5 disc protrusion. 2. Clumped appearance to the nerve roots at the L4-L5 level. Question arachnoiditis with history of prior surgery. Post contrast imaging may be helpful for further evaluation. 3. L4-L5 facet arthrosis. Electronically Signed: Jessie Joe MD at 20:22 EST Tel , Service support ,
== END ==
PROVIDERS: PCP Family Medicine; Referring Provider Family Medicine; Visit Provider Family Medicine
DX: M54.9 Dorsalgia, unspecified (principal)
CPT/HCPCS: 72148

== ENCOUNTER → 2021-09-26 | Outpatient (CLI) | payer BC, SELFPAY | END | disposition home or self-care (01) | PROVIDERS: PCP Family Medicine; Visit Provider Registered Nurse | DX: U07.1 COVID-19 (principal) | CPT/HCPCS: 87635; U0005; U0003 ==

== ENCOUNTER 2021-09-28 11:33 | Outpatient (CLI) | payer BC, SELFPAY ==
[2021-09-28 11:55] VITALS: BP 141/77; PULSE 91; RESP 18; TEMP 36.2; O2SAT 92; BMI 32.3
[2021-09-28] MEDS: 0.9% Saline Lock 10 ML Syringe IV (11:55)
[2021-09-28 13:13] VITALS: BP 127/76; PULSE 86; RESP 16; TEMP 36.8; O2SAT 94
[2021-09-28 14:04] VITALS: BP 129/74; PULSE 88; RESP 16; TEMP 36.7; O2SAT 95
== END 2021-09-28 14:10 | disposition home or self-care (01) ==
LOC: MS3OUT 11:33 → MS3 11:33
PROVIDERS: PCP Family Medicine; Referring Provider Nurse Practitioner Acute Care; Visit Provider Nurse Practitioner Acute Care
DX: Z23 Encounter for immunization (principal); U07.1 COVID-19
CPT/HCPCS: J7050; M0245; Q0245; A4216